=== PATIENT | male | born 1990 | race Caucasian/White ===

== ENCOUNTER 2016-12-19 21:16 | Emergency (ER) | payer BC, OTHER ==
[~2016-12-19] VITALS: Ht 185.4 cm; Wt 132.0 kg
[2016-12-19 21:38] VITALS: TEMP 36.5; Ht 185.4 cm; Wt 132.0 kg
[2016-12-19] MEDS ORDERED: NORCO 5/325MG HOME PACK PO ONE (22:15)
[2016-12-19] MEDS ORDERED: HYDROCODONE/ACETAMOPHEN 5/325MG TAB PO PRN (22:15)
[2016-12-19] MEDS ORDERED: SULFAMETHOXAZOLE/TRIMETHOPRIM DS 800/160MG TAB PO ONE (22:15)
[2016-12-19] MEDS ORDERED: SULF800T23 PO (22:22)
--- NOTE | 2016-12-19 22:23 | EMERGENCY ROOM VISIT NOTE ---
History Report prepared by Julieta: Josias Leach Under the Supervision of: Dr. Jose Dougherty D.O. First contact with patient: 21:55 Chief Complaint: RECTAL PAIN Stated Complaint: RECTAL PAIN,CONSTIPATION,CAN'T SLEEP/SIT History of Present Illness The patient is a 26 year old male who presents to the Emergency Room with complaints of constant rectal pain beginning yesterday. He states that it feels like there is a "little ridge" over his rectum. He states that his pain began suddenly after wiping following defecation, and he has been having difficulty wiping since. The patient denies any abdominal pain, or rectal bleeding. He denies any straining. He notes that he was started on an antibiotic last week for strep-throat. The patient has no personal or family history of rectal cancer. Source of History: patient Onset: yesterday Position: other (rectum) Timing: constant Modifying Factors (Worsening): defecation (wiping rectum) Associated Symptoms: No abdominal pain Note: The patient denies any rectal bleeding. Review of Systems See HPI for pertinent positives and negatives. A total of ten systems were reviewed and were otherwise negative. Past Medical & Surgical Medical Problems: (1) No Known Active Medical Problems Family History No pertinent family history stated. Social History Smoking Status: Never Smoker Housing Status: lives with family Current/Historical Medications Scheduled Sulfamethoxazole-Trimethoprim (Bactrim Ds 800MG/160MG), 1 TAB PO BID Physical Exam Vital Signs Date Time Temp Pulse Resp B/P Pulse Ox O2 Delivery O2 Flow Rate FiO2 12/19/16 21:38 36.5 100 20 165/91 96 Room Air Physical Exam GENERAL: Awake, alert, well-appearing, in no distress HENT: Normocephalic, atraumatic. Oropharynx unremarkable. EYES: Normal conjunctiva. Sclera non-icteric. NECK: Supple. No nuchal rigidity. FROM. No JVD. RESPIRATORY: Clear to auscultation. CARDIAC: Regular rate, normal rhythm. Extremities warm and well perfused. Pulses equal. ABDOMEN: Soft, non-distended. No tenderness to palpation. No rebound or guarding. No masses. RECTAL: Open abscess draining brown pus. No significant bleeding or tenderness. MUSCULOSKELETAL: Chest examination reveals no tenderness. The back is symmetrical on inspection without obvious abnormality. There is no CVA tenderness to palpation. No joint edema. LOWER EXTREMITIES: Calves are equal size bilaterally and non-tender. No edema. No discoloration. NEURO: Normal sensorium. No sensory or motor deficits noted. SKIN: No rash or jaundice noted. Medical Decision & Procedures ED Course 2156: The patient was evaluated in room B3. A complete history and physical exam was performed. 2214: Ordered Septra Ds 800/160 mg Tab PO, Othello 5/325 mg homepack PO, Othello 5/ 325 mg Tab PO. 2224: I reevaluated the patient. Discussed results and discharge instructions: he verbalized understanding and agreement. The patient is ready for discharge. Medical Decision Triage Nursing notes reviewed. The patient's presentation and history were concerning for hemorrhoid, anal fissure, and perirectal abscess. Patient on examination has an open abscess in the perirectal region not extending into the rectum. Patient has no current fever does not appear septic I discussed the evaluation with the patient we will change him over to Bactrim from clarithromycin that he is on for a sore throat. Patient was also instructed to use sits baths. Patient also instructed to follow up if he has fever inability to tolerate antibiotics or for any concerns The chart was completed utilizing [employer] Speech voice recognition software. Grammatical errors, random word insertions, pronoun errors, and incomplete sentences are an occasional consequence of this system due to software limitations, ambient noise, and hardware issues. Any formal questions or concerns about the content, text, or information contained within the body of this dictation should be directly addressed to the physician for clarification. Impression Primary Impression: Perirectal abscess Scribe Attestation The scribe's documentation has been prepared under my direction and personally reviewed by me in its entirety. I confirm that the note above accurately reflects all work, treatment, procedures, and medical decision making performed by me. Departure Information Dispostion Home / Self-Care Prescriptions Sulfamethoxazole-Trimethoprim (Bactrim Ds 800MG/160MG) 1 Tab Tab 1 TAB PO BID for 10 Days, #20 TAB Prov: Jose Dougherty, DO 12/19/16 Referrals No Doctor, Assigned (PCP) Patient Instructions ED Abscess Abx Tx Only Ch, [facility]
[2016-12-19] MEDS ORDERED: OMEP40CA41 PO (22:30)
[2016-12-19 22:43] VITALS: BP 157/84; PULSE 94; O2SAT 98
== END 2016-12-19 22:44 | disposition home or self-care (01) ==
LOC: C.EDB 21:17
DX: K61.1 Rectal abscess (principal)

== ENCOUNTER 2016-12-31 13:59 | Emergency (ER) | payer BC, OTHER ==
[~2016-12-31] VITALS: Ht 185.4 cm; Wt 133.0 kg
[~2016-12-31 13:59] MED LIST: OMEP40CA41 PO
[2016-12-31 14:08] VITALS: TEMP 37; Ht 185.4 cm; Wt 133.0 kg
[2016-12-31] MEDS ORDERED: DOXY50CA26 PO (14:32)
[2016-12-31] MEDS ORDERED: SULF800T23 PO (14:32)
[2016-12-31] MEDS ORDERED: AZITTAB PO (14:57)
[2016-12-31 15:06] VITALS: BP 148/106; PULSE 85; O2SAT 97
--- NOTE | 2016-12-31 16:56 | EMERGENCY ROOM VISIT NOTE ---
ED Visit Note First contact with patient: 14:18 CHIEF COMPLAINT: Sore throat HISTORY OF PRESENT ILLNESS: This 26-year-old white male patient reports increasing pain in the throat over the last 2 days, gradual in onset. It is worse with swallowing. No fever, chills, or sweats. No rashes. Denies any posterior neck pain or stiffness. No difficulty breathing or shortness of breath. No ear pain, cough, or abdominal pain. Symptoms came on gradually. There has been no chest pain, no nausea or vomiting. No known ill contacts. Pain is 3/10. Patient was recently treated for a perirectal abscess and was on Bactrim. He wants to be sure that the sore throat is not related to the perirectal abscess. REVIEW OF SYSTEMS: HEENT: No dizziness, visual problems, hearing loss, or tinnitus. no oral lesions are present. LYMPH: No adenopathy. PULMONARY: No cough, shortness of breath, sputum production or hemoptysis. CARDIOVASCULAR: No chest pain, palpitations, shortness of breath or peripheral edema. GASTROINTESTINAL: No diarrhea, constipation, nausea, vomiting, or abdominal pain. GENITOURINARY: No dysuria, frequency, urgency or nocturia. NEUROLOGIC: No weakness, muscle tenderness, epilepsy or history of neurological problems. MUSCULOSKELETAL: No history of joint tenderness/swelling. No history of arthritis or arthralgias. SKIN: No rashes or lesions. PSYCHIATRIC: No history of depression or mental illness. ENDOCRINE: No history of diabetes, thyroid disorders, or abnormal hair growth. Previous surgeries: None Medical history: Significant for recent perirectal abscess and GERD Current medications: Reviewed and filed in patient's chart Allergies: Amoxicillin, cephalosporin, penicillin Family History: Noncontributory SOCIAL HISTORY: Employed. Single. No tobacco use. PHYSICAL EXAM: Vital Signs: Afebrile. Reviewed and filed in patient's chart. MENTAL STATUS: Alert and oriented. Skin:Warm and dry with good turgor. No rashes or lesions. No ecchymosis or erythema. The patient is not diaphoretic. No abrasions. HEENT: Normocephalic atraumatic. Eyes PERRLA, EOMI. No conjunctiva or scleral injection. Ears TMs intact bilaterally with good light reflexes. No erythema or bulging. No hemotympanum. Canals are patent. Nares patent bilaterally without turbinate enlargement. No significant drainage. No epistaxis. Oropharynx with erythema and exudate. Uvula midline, oral mucosa moist. No lesions present. Tonsils are enlarged bilaterally. Lymphatics are palpated without anterior chain enlargement or tenderness. No posterior chain enlargement or tenderness. Heart: Heart RRR. No MGR. Peripheral pulses are 2+. Lungs: Lungs are clear to auscultation. No crackles, rhonchi, or wheezing. Good air movement. The patient is able to take a deep breath. Data: Rapid strep obtained today was negative. Back up cultures were sent. DIAGNOSIS: Acute pharyngitis. DISCHARGE INSTRUCTIONS & TREATMENT: Patient was educated regarding today's findings. Conservative care measures were discussed. He will be called if the back up cultures return positive. Prescription was given for Zithromax to be started if the culture returns positive. Maintain hydration. Tylenol and ibuprofen every 6 hours as needed for discomfort. Read the pharyngitis (sore throat) instruction sheet. Follow-up with his PCP as needed. He was reassured that this should not have any connection to his perirectal abscess. He was on Bactrim previously and may have finished before his throat symptoms started. Current/Historical Medications Scheduled Azithromycin (Zithromax Z-Abraham), 0 PO UD Doxycycline (Monohydrate) (Doxycycline), 50 MG PO BID Omeprazole (Prilosec), 40 MG PO DAILY Sulfa/Trimethoprim (Bactrim Ds 800MG/160MG), 1 TAB PO BID Allergies Coded Allergies: Amoxicillin (Unverified Allergy, Severe, unknown, 12/31/16) Penicillins (Unverified Allergy, Severe, unknown, 12/31/16) Cephalosporins (Unverified Allergy, Unknown, CHILDHOOD ALLERGY, UNKNOWN, ) Vital Signs Date Time Temp Pulse Resp B/P Pulse Ox O2 Delivery O2 Flow Rate FiO2 12/31/16 15:06 85 18 148/106 97 12/31/16 14:08 37.0 109 20 166/91 98 Room Air Departure Information Impression Primary Impression: Pharyngitis, acute Dispostion Home / Self-Care Condition GOOD Prescriptions Azithromycin (ZITHROMAX Z-ABRAHAM) 250 Mg Tab 0 PO UD, #1 PKT 2 TABS DAY 1, THEN 1 TAB DAILY FOR 4 DAYS Prov: Jagdish Pichardo,P.A. 12/31/16 Forms HOME CARE DOCUMENTATION FORM, MOTRIN USE, TYLENOL USE, IMPORTANT VISIT INFORMATION Patient Instructions Sore Throat - [facility], [facility] Additional Instructions Tylenol and Motrin every 6 hours as needed for discomfort Saltwater gargles several times a day to improve comfort Cultures will be read in 48-72 hours. If cultures are positive, start Zithromax daily 5 days Avoid sharing utensils, cups, and saliva with anyone else for the next 10 days Return to the ED or follow-up with your PCP for any other concerns.
== END 2016-12-31 15:07 | disposition home or self-care (01) ==
LOC: C.EDB 14:00 → C.EDD 15:07
DX: J02.9 Acute pharyngitis, unspecified (principal); K21.9 Gastro-esophageal reflux disease without esophagitis; Z86.19 Personal history of other infectious and parasitic diseases; Z88.0 Allergy status to penicillin; Z88.1 Allergy status to other antibiotic agents; Z88.8 Allergy status to other drugs, medicaments and biological substances